=== PATIENT | male | born 1995 | race African-American/Black ===

== ENCOUNTER 2022-12-14 14:45 | Emergency (ER) | payer SELFPAY ==
[~2022-12-14] VITALS: Ht 170.2 cm; Wt 65.8 kg
[2022-12-14 15:00] VITALS: O2SAT 98
== END 2022-12-14 15:30 | disposition left against medical advice (07) ==
LOC: ER 14:45
DX: F10.239 Alcohol dependence with withdrawal, unspecified (principal); F41.9 Anxiety disorder, unspecified; R06.00 Dyspnea, unspecified; Y90.9 Presence of alcohol in blood, level not specified
CPT/HCPCS: A4606; A4663